=== PATIENT | female | born 1970 | race Caucasian/White ===

== ENCOUNTER 2016-11-15 21:13 | Observation (INO) | payer SELFPAY ==
[~2016-11-15] VITALS: Ht 149.9 cm; Wt 63.5 kg
[2016-11-15 21:53] LABS: BASO # 0.1 x10^3/uL (0.0-0.2); BASO % 1 % (0-3); EOS % 4 % (0-3); HEMATOCRIT 37.8 % (36.0-47.0); HEMOGLOBIN 12.8 g/dL (12.0-15.5); LYMPH # 3.2 x10^3/uL (1.0-4.8); LYMPH % 31 % (24-48); MEAN CORPUSCULAR HEMOGLOBIN 32 pg (25-35); MEAN CORPUSCULAR HGB CONC 34 g/dL (31-37); MEAN CORPUSCULAR VOLUME 96 fL (79-100); MONO % 6 % (0-9); NEUT % 59 % (31-73); PLATELET COUNT 264 x10^3/uL (140-400); RED BLOOD COUNT 3.95 x10^6/uL (3.50-5.40); RED CELL DISTRIBUTION WIDTH 12.9 % (11.5-14.5); WHITE BLOOD COUNT 10.5 x10^3/uL (4.0-11.0)
--- NOTE | 2016-11-15 21:54 | PHYS DOC ---
Past Medical History Past Medical History: Cancer, Liver Disease, Other Additional Past Medical Histor: HYPOGLYCEMIA, CERVICAL CA Past Surgical History: Hysterectomy Alcohol Use: None Drug Use: None Adult General Chief Complaint Chief Complaint: CHEST PAIN HPI HPI Patient is a 46 year old female who presents with chest pain. She states it started last night around 2 in the morning to sharp and it radiates her back she felt nauseated with this and has been getting worse throughout the day. She also said a couple times a rate up into her left side of her jaw and down the left arm. It comes and goes. Nothing she does makes it come on or go away. 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 She has a family history of heart disease her mom and dad and sister each of had coronary disease with stents and bypass. She had a stress test approximately 5 years ago but has not had anything since then. She is not her primary care physician. She' s also been complaining about feeling very weak and tired today. Review of Systems Review of Systems Constitutional: Denies fever or chills [] Eyes: Denies change in visual acuity, redness, or eye pain [] HENT: Denies nasal congestion or sore throat [] Respiratory: Denies cough or shortness of breath [] Cardiovascular: No additional information not addressed in HPI [] GI: Denies abdominal pain, nausea, vomiting, bloody stools or diarrhea [] : Denies dysuria or hematuria [] Musculoskeletal: Denies back pain or joint pain [] Integument: Denies rash or skin lesions [] Neurologic: Denies headache, focal weakness or sensory changes [] Endocrine: Denies polyuria or polydipsia [] Current Medications Current Medications Current Medications Medications (Trade) Dose Ordered Sig/Dayanna Start Time Stop Time Status Last Admin Dose Admin Fentanyl Citrate (Fentanyl 2ml Vial) 50 mcg 1X ONCE 11/15/16 23:15 11/15/16 23:16 DC 11/15/16 23:04 50 MCG Morphine Sulfate 2 mg PRN Q15MIN PRN 11/15/16 22:45 11/15/16 23:05 DC Ondansetron HCl (Zofran) 4 mg STK-MED ONCE 11/15/16 23:22 11/15/16 23:23 DC Allergies Allergies Allergies Coded Allergies Type Severity Reaction Last Updated Verified Corticosteroids (Glucocorticoids) Allergy Intermediate 11/15/16 Yes Penicillins Allergy Intermediate 11/15/16 Yes acetaminophen Allergy Intermediate 11/15/16 Yes cephalexin Allergy Intermediate 11/15/16 Yes erythromycin base Allergy Intermediate 11/15/16 Yes hydrocodone Allergy Intermediate 11/15/16 Yes ketorolac Allergy Intermediate 11/15/16 Yes levofloxacin Allergy Intermediate 11/15/16 Yes morphine Allergy Intermediate 11/15/16 Yes Physical Exam Physical Exam Constitutional: Well developed, well nourished, no acute distress, non-toxic appearance. [] HENT: Normocephalic, atraumatic, bilateral external ears normal, oropharynx moist, no oral exudates, nose normal. [] Eyes: PERRLA, EOMI, conjunctiva normal, no discharge. [] Neck: Normal range of motion, no tenderness, supple, no stridor. [] Cardiovascular:Heart rate regular rhythm, no murmur [] Lungs & Thorax: Bilateral breath sounds clear to auscultation [] Abdomen: Bowel sounds normal, soft, no tenderness, no masses, no pulsatile masses. [] Skin: Warm, dry, no erythema, no rash. [] Back: No tenderness, no CVA tenderness. [] Extremities: No tenderness, no cyanosis, no clubbing, ROM intact, no edema. [] Neurologic: Alert and oriented X 3, normal motor function, normal sensory function, no focal deficits noted. [] Psychologic: Affect normal, judgement normal, mood normal. [] Current Patient Data Vital Signs Vital Signs Date Time Temp Pulse Resp B/P Pulse Ox O2 Delivery O2 Flow Rate FiO2 11/15/16 21:25 97.9 65 16 158/100 100 Room Air 97.9 Lab Values Laboratory Tests Test 11/15/16 21:29 11/15/16 21:40 White Blood Count 10.5x10^3/uL (4.0-11.0) Red Blood Count 3.95x10^6/uL (3.50-5.40) Hemoglobin 12.8g/dL (12.0-15.5) Hematocrit 37.8% (36.0-47.0) Mean Corpuscular Volume 96fL (79-100) Mean Corpuscular Hemoglobin 32pg (25-35) Mean Corpuscular Hemoglobin Concent 34g/dL (31-37) Red Cell Distribution Width 12.9% (11.5-14.5) Platelet Count 264x10^3/uL (140-400) Neutrophils (%) (Auto) 59% (31-73) Lymphocytes (%) (Auto) 31% (24-48) Monocytes (%) (Auto) 6% (0-9) Eosinophils (%) (Auto) 4% (0-3) H Basophils (%) (Auto) 1% (0-3) Neutrophils # (Auto) 6.2x10^3uL (1.8-7.7) Lymphocytes # (Auto) 3.2x10^3/uL (1.0-4.8) Monocytes # (Auto) 0.6x10^3/uL (0.0-1.1) Eosinophils # (Auto) 0.4x10^3/uL (0.0-0.7) Basophils # (Auto) 0.1x10^3/uL (0.0-0.2) D-Dimer (Saira) 0.45ug/mlFEU (0.00-0.50) Sodium Level 141mmol/L (136-145) Potassium Level 3.5mmol/L (3.5-5.1) Chloride Level 105mmol/L (98-107) Carbon Dioxide Level 25mmol/L (21-32) Anion Gap 11 (6-14) Blood Urea Nitrogen 13mg/dL (7-20) Creatinine 0.8mg/dL (0.6-1.0) Estimated GFR (Cockcroft-Gault) 77.2 Glucose Level 91mg/dL (70-99) Calcium Level 9.1mg/dL (8.5-10.1) Magnesium Level 2.0mg/dL (1.8-2.4) Total Bilirubin 0.3mg/dL (0.2-1.0) Direct Bilirubin 0.1mg/dL (0.0-0.2) Aspartate Amino Transferase (AST) 14U/L (15-37) L Alanine Aminotransferase (ALT) 22U/L (14-59) Alkaline Phosphatase 86U/L (46-116) Creatine Kinase 87U/L (26-192) Creatine Kinase MB (Mass) 0.8ng/mL (0.0-3.6) Creatine Kinase MB Relative Index 0.9% (0-4) Troponin I Quantitative < 0.017ng/mL (0.000-0.055) UD-Msh-G-Type Natriuretic Peptide 71pg/mL (0-124) Total Protein 7.6g/dL (6.4-8.2) Albumin 3.7g/dL (3.4-5.0) Lipase 356U/L (73-393) Thyroid Stimulating Hormone (TSH) 3.809uIU/mL (0.358-3.74) H Urine Collection Type Unknown Urine Color Yellow Urine Clarity Clear Urine pH 7.5 Urine Specific [place] <=1.005 Urine Protein Negativemg/dL (NEG-TRACE) Urine Glucose (UA) Negativemg/dL (NEG) Urine Ketones (Stick) Negativemg/dL (NEG) Urine Blood Negative (NEG) Urine Nitrite Negative (NEG) Urine Bilirubin Negative (NEG) Urine Urobilinogen Dipstick 0.2mg/dL (0.2 mg/dL) Urine Leukocyte Esterase Negative (NEG) Urine RBC 0/HPF (0-2) Urine WBC 0/HPF (0-4) Urine Squamous Epithelial Cells Few/LPF Urine Bacteria 0/HPF (0-FEW) Laboratory Tests 11/15/16 21:29 Laboratory Tests 11/15/16 21:29 EKG EKG EKG shows normal sinus rhythm with rate of [address] elevations or T -wave inversions, normal axis, QTC 390 ms as interpreted me. Radiology/Procedures Radiology/Procedures 1 view chest x ray did not show any focal consolidations, bony abnormalities, pneumothorax or other abnormalities, as interpreted by me. Impressions: Chest pain Tobacco abuse Course & Med Decision Making Course & Med Decision Making Pertinent Labs and Imaging studies reviewed. (See chart for details) EKG did not show any cute abnormalities. Chest x-ray also nonacute. Initial labs and troponin is negative. We will admit to the hospitalist with cardiology consultation. Interim orders been written. Patient's agreeable plan and has received aspirin 325 mg. Dragon Disclaimer Dragon Disclaimer This electronic medical record was generated, in whole or in part, using a voice recognition dictation system. Departure Departure Impression: Primary Impression: Chest pain Disposition: 09 ADMITTED INPATIENT Admitting Physician: Juany Murphy Condition: STABLE Referrals: NO PCP (PCP) Problem Qualifiers Primary Impression: Chest pain Chest pain type: unspecified Qualified Code: R07.9 - Chest pain, unspecified DONAVON SOSA MD Nov 15, 2016 21:54
[2016-11-15 22:01] LABS: CALCIUM 9.1 mg/dL (8.5-10.1); CREATININE 0.8 mg/dL (0.6-1.0); GFR 77.2; POTASSIUM 3.5 mmol/L (3.5-5.1)
[2016-11-15 22:07] LABS: ALBUMIN 3.7 g/dL (3.4-5.0); DIRECT BILIRUBIN 0.1 mg/dL (0.0-0.2); TOTAL BILIRUBIN 0.3 mg/dL (0.2-1.0); TOTAL PROTEIN 7.6 g/dL (6.4-8.2)
[2016-11-15 22:16] LABS: CKMB MASS 0.8 ng/mL (0.0-3.6)
[2016-11-15 22:35] LABS: BILIRUBIN,URINE NEGATIVE (NEG); GLUCOSE,URINE NEGATIVE (NEG); NITRITE,URINE NEGATIVE (NEG); PH,URINE 7.5; PROTEIN,URINE NEGATIVE (NEG-TRACE); UROBILINOGEN,URINE 0.2 mg/dL (0.2 mg/dL)
[2016-11-15 22:40] LABS: BACTERIA,URINE 0 /HPF (0-FEW); RBC,URINE 0 /HPF (0-2); SQUAMOUS EPITHELIAL CELL,UR FEW /LPF; WBC,URINE 0 /HPF (0-4)
[2016-11-15] MEDS ORDERED: MORPHINE SULFATE 2 MG/ML DISP.SYRIN. IV/SQ PRN (22:45)
[2016-11-15] MEDS ORDERED: fentaNYL PF VIAL 100 MCG/2 ML VIAL ONE (22:58)
[2016-11-15] MEDS ORDERED: fentaNYL PF VIAL 100 MCG/2 ML VIAL IV ONE (23:15)
[2016-11-15] MEDS ORDERED: ONDANSETRON PF 4 MG/2 ML VIAL. ONE (23:22)
[2016-11-15] MEDS: ONDANSETRON PF 4 MG/2 ML VIAL. IV PRN (23:41)
[2016-11-15] MEDS: fentaNYL PF VIAL 100 MCG/2 ML VIAL IV PRN (23:41)
[2016-11-15] MEDS ORDERED: ASPIRIN CHEWABLE 81 MG TABLET. PO ONE (23:45)
[2016-11-15] MEDS ORDERED: ASPIRIN 325 MG TABLET PO ONE (23:45)
[2016-11-16] VITALS (7 sets, daily range): BP systolic 100–121; BP diastolic 58–89
[2016-11-16] MEDS: fentaNYL PF VIAL 100 MCG/2 ML VIAL IV PRN ×6 (01:34→20:54)
[2016-11-16 06:33] LABS: BASO # 0.1 x10^3/uL (0.0-0.2); BASO % 1 % (0-3); EOS % 6 % (0-3); HEMATOCRIT 37.5 % (36.0-47.0); HEMOGLOBIN 12.9 g/dL (12.0-15.5); LYMPH # 2.8 x10^3/uL (1.0-4.8); LYMPH % 32 % (24-48); MEAN CORPUSCULAR HEMOGLOBIN 33 pg (25-35); MEAN CORPUSCULAR HGB CONC 34 g/dL (31-37); MEAN CORPUSCULAR VOLUME 95 fL (79-100); MONO % 6 % (0-9); NEUT % 56 % (31-73); PLATELET COUNT 236 x10^3/uL (140-400); RED BLOOD COUNT 3.96 x10^6/uL (3.50-5.40); RED CELL DISTRIBUTION WIDTH 13.3 % (11.5-14.5); WHITE BLOOD COUNT 8.8 x10^3/uL (4.0-11.0)
[2016-11-16 06:35] LABS: CALCIUM 8.6 mg/dL (8.5-10.1); CREATININE 0.9 mg/dL (0.6-1.0); GFR 67.4; POTASSIUM 4.1 mmol/L (3.5-5.1)
--- NOTE | 2016-11-16 08:32 | EKG ---
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
--- NOTE | 2016-11-16 09:03 | RAD ---
Portable AP upright view CXR: Clinical indications: Chest pain today. Findings: No acute lung infiltrate or pleural effusion or pulmonary edema or lung mass or pneumothorax is seen. The heart size, pulmonary vasculature, mediastinum and both shelly are unremarkable. Impression: No acute radiographic abnormality is seen.
--- NOTE | 2016-11-16 09:36 | PDOC2 ---
CARDIOLOGY CONSULT NOTE CHEIF COMPLAINT: Chest pain Problems: HPI: 46 y.o F with pmhx as noted below presenting for chest pain. She states that she had some discomfort in her chest yesterday. Kerrick like a burning/GERD issue, then transitioned to pain in the jaw and chest. No prior similar events. Reports persistent epigastric CP now. No SOB. Has some palpitations. No syncope or palpitations. PMHX: Tobacco abuse. Hysterectomy SOCHX: Lives with boyfriend. Unemployed. 2 ppd smoker FAMHX: +CAD CURRENT MEDS: Current Medications Medications (Trade) Dose Ordered Sig/Dayanna Start Time Stop Time Status Last Admin Dose Admin Aspirin (Karen Aspirin) 325 mg 1X ONCE 11/15/16 23:45 11/15/16 23:46 Cancel Aspirin (Aneumed'S Aspirin) 324 mg 1X ONCE 11/15/16 23:45 11/15/16 23:46 DC 11/15/16 23:41 324 MG Fentanyl Citrate (Fentanyl 2ml Vial) 50 mcg PRN Q2HR PRN 11/15/16 23:30 11/16/16 23:29 11/16/16 05:16 50 MCG Morphine Sulfate 2 mg PRN Q15MIN PRN 11/15/16 22:45 11/15/16 23:05 DC Ondansetron HCl (Zofran) 4 mg PRN Q8HRS PRN 11/15/16 23:30 11/16/16 23:29 11/15/16 23:41 4 MG ALLERGIES: Allergies Coded Allergies Type Severity Reaction Last Updated Verified Corticosteroids (Glucocorticoids) Allergy Intermediate 11/15/16 Yes Penicillins Allergy Intermediate 11/15/16 Yes acetaminophen Allergy Intermediate 11/15/16 Yes cephalexin Allergy Intermediate 11/15/16 Yes erythromycin base Allergy Intermediate 11/15/16 Yes hydrocodone Allergy Intermediate 11/15/16 Yes ketorolac Allergy Intermediate 11/15/16 Yes levofloxacin Allergy Intermediate 11/15/16 Yes morphine Allergy Intermediate 11/15/16 Yes ROS: Negative for 05/03 systems reviewed unless otherwise noted above in HPI. PHYSICAL EXAM: Vital Signs: Vital Signs Date Time Temp Pulse Resp B/P Pulse Ox O2 Delivery O2 Flow Rate FiO2 11/16/16 07:03 98.7 50 16 105/65 Room Air 94.0 98.7 11/16/16 05:16 100 I & O Intake and Output 11/16/16 07:00 Intake Total 100 ml Balance 100 ml Intake Oral 100 ml Physical Exam: Gen: a/o x 3. NAD CVS: RRR, no m/r/g PULM: CTAB ABD: Soft, NT/ND +BS EXT: No edema. NEURO:Non-focal DIAGNOSTIC TESTIN. EKG normal 2. Trop neg x 2. Lab Laboratory Tests Test 11/15/16 21:29 11/15/16 21:40 11/16/16 05:00 White Blood Count 10.5x10^3/uL (4.0-11.0) 8.8x10^3/uL (4.0-11.0) Red Blood Count 3.95x10^6/uL (3.50-5.40) 3.96x10^6/uL (3.50-5.40) Hemoglobin 12.8g/dL (12.0-15.5) 12.9g/dL (12.0-15.5) Hematocrit 37.8% (36.0-47.0) 37.5% (36.0-47.0) Mean Corpuscular Volume 96fL (79-100) 95fL (79-100) Mean Corpuscular Hemoglobin 32pg (25-35) 33pg (25-35) Mean Corpuscular Hemoglobin Concent 34g/dL (31-37) 34g/dL (31-37) Red Cell Distribution Width 12.9% (11.5-14.5) 13.3% (11.5-14.5) Platelet Count 264x10^3/uL (140-400) 236x10^3/uL (140-400) Neutrophils (%) (Auto) 59% (31-73) 56% (31-73) Lymphocytes (%) (Auto) 31% (24-48) 32% (24-48) Monocytes (%) (Auto) 6% (0-9) 6% (0-9) Eosinophils (%) (Auto) 4% (0-3) H 6% (0-3) H Basophils (%) (Auto) 1% (0-3) 1% (0-3) Neutrophils # (Auto) 6.2x10^3uL (1.8-7.7) 4.9x10^3uL (1.8-7.7) Lymphocytes # (Auto) 3.2x10^3/uL (1.0-4.8) 2.8x10^3/uL (1.0-4.8) Monocytes # (Auto) 0.6x10^3/uL (0.0-1.1) 0.6x10^3/uL (0.0-1.1) Eosinophils # (Auto) 0.4x10^3/uL (0.0-0.7) 0.5x10^3/uL (0.0-0.7) Basophils # (Auto) 0.1x10^3/uL (0.0-0.2) 0.1x10^3/uL (0.0-0.2) D-Dimer (Saira) 0.45ug/mlFEU (0.00-0.50) Sodium Level 141mmol/L (136-145) 145mmol/L (136-145) Potassium Level 3.5mmol/L (3.5-5.1) 4.1mmol/L (3.5-5.1) # Chloride Level 105mmol/L (98-107) 109mmol/L (98-107) H Carbon Dioxide Level 25mmol/L (21-32) 28mmol/L (21-32) Anion Gap 11 (6-14) 8 (6-14) Blood Urea Nitrogen 13mg/dL (7-20) 14mg/dL (7-20) Creatinine 0.8mg/dL (0.6-1.0) 0.9mg/dL (0.6-1.0) Estimated GFR (Cockcroft-Gault) 77.2 67.4 Glucose Level 91mg/dL (70-99) 98mg/dL (70-99) Calcium Level 9.1mg/dL (8.5-10.1) 8.6mg/dL (8.5-10.1) Total Bilirubin 0.3mg/dL (0.2-1.0) Direct Bilirubin 0.1mg/dL (0.0-0.2) Aspartate Amino Transf (AST/SGOT) 14U/L (15-37) L Alkaline Phosphatase 86U/L (46-116) Creatine Kinase 87U/L (26-192) Creatine Kinase MB (Mass) 0.8ng/mL (0.0-3.6) Creatine Kinase MB Relative Index 0.9% (0-4) Total Protein 7.6g/dL (6.4-8.2) Albumin 3.7g/dL (3.4-5.0) Lipase 356U/L (73-393) Thyroid Stimulating Hormone (TSH) 3.809uIU/mL (0.358-3.74) H Urine Collection Type Unknown Urine Color Yellow Urine Clarity Clear Urine pH 7.5 Urine Specific [place] <=1.005 Urine Protein Negativemg/dL (NEG-TRACE) Urine Glucose (UA) Negativemg/dL (NEG) Urine Ketones (Stick) Negativemg/dL (NEG) Urine Blood Negative (NEG) Urine Nitrite Negative (NEG) Urine Bilirubin Negative (NEG) Urine Urobilinogen Dipstick 0.2mg/dL (0.2 mg/dL) Urine Leukocyte Esterase Negative (NEG) Urine RBC 0/HPF (0-2) Urine WBC 0/HPF (0-4) Urine Squamous Epithelial Cells Few/LPF Urine Bacteria 0/HPF (0-FEW) ASSESSMENT: 1. Suspect GERD, cannot rule out cardiac issues given risk factors. PLAN: 1. Plan for treadmill lexiscan in a.m., patient ate today. Thanks for consult. CARLOS CANTRELL MD Nov 16, 2016 09:36
[2016-11-16 10:22] LABS: CHOLESTEROL/HDL RATIO 6.9
--- NOTE | 2016-11-16 12:35 | HP ---
ADMIT DATE: 11/16/2016 CHIEF COMPLAINT: Chest pain. HISTORY OF PRESENT ILLNESS: The patient is a pleasant 46-year-old healthy female who presented with chest pain. She rates it 710, was associated with some nausea. Her initial workup in the ER was negative; however, coronary artery disease does run in her family. We admit the patient. We are going to consult Cardiology. She is going for a stress test tomorrow. PAST MEDICAL HISTORY: Reviewed, please refer to the computerized H and P. ALLERGIES: None. FAMILY HISTORY: Coronary artery disease. SOCIAL HISTORY: She does smoke. No drinking or drugs. MEDICATIONS: Reviewed, please refer to the MRAD. REVIEW OF SYSTEMS: GENERAL: No history of weight change, weakness or fevers. SKIN: No bruising, hair changes or rashes. EYES: No blurred, double or loss of vision. NOSE AND THROAT: No history of nosebleeds, hoarseness or sore throat. HEART: She complains of intermittent chest pain. LUNGS: Denies cough, hemoptysis, wheezing or shortness of breath. GASTROINTESTINAL: Denies changes in appetite, nausea, vomiting, diarrhea or constipation. GENITOURINARY: No history of frequency, urgency, hesitancy or nocturia. NEUROLOGIC: Denies history of numbness, tingling, tremor or weakness. PSYCHIATRIC: No history of panic, anxiety or depression. ENDOCRINE: No history of heat or cold intolerance, polyuria or polydipsia. EXTREMITIES: Denies muscle weakness, joint pain, pain on walking or stiffness. PHYSICAL EXAMINATION: VITAL SIGNS: Temperature afebrile, pulse 68, respirations 18, blood pressure 144/62. GENERAL: She is alert, cooperative. HEART: Normal S1, S2. LUNGS: Clear. ABDOMEN: Soft, positive bowel sounds. EXTREMITIES: No edema. SKIN: No rashes. PSYCHIATRIC: She is stable. VASCULAR: Good capillary refill. ENDOCRINE: No thyromegaly. LYMPHATICS: No cervical nodes. HEMATOPOIETIC: No bruising. LABORATORY DATA: EKG shows sinus rhythm. Troponin 0. ASSESSMENT AND PLAN: Chest pain, rule out coronary artery disease. The patient has been admitted. We will check serial enzymes, serial EKGs. Consult Cardiology. She is going for myocardial perfusion imaging study in the morning. BEAU GOMEZ DO DR: Anupama JOB#: [id number] / [id number]
[2016-11-16] MEDS: ONDANSETRON PF 4 MG/2 ML VIAL. IV PRN ×2 (12:45→20:54)
[2016-11-16] MEDS ORDERED: ZOLPIDEM 5 MG TABLET. PO PRN (19:30)
[2016-11-17 03:45] VITALS: BP 97/44
[2016-11-17 07:59] VITALS: BP 107/66
[2016-11-17 10:30] VITALS: BP 105/70
[2016-11-17] MEDS ORDERED: REGADENOSON 0.4 MG/5 ML DISP.SYRIN. IV ONE (10:30)
[2016-11-17] MEDS ORDERED: ONDANSETRON PF 4 MG/2 ML VIAL. IV ONE (12:15)
--- NOTE | 2016-11-17 12:18 | RAD ---
APPROVED REPORT Test Type: Pharmacological Stress Nurse/Tech: Nathan Patiño RN Test Indications: chest pain Cardiac History: see ehr Medications: see ehr Medical History: see ehr Resting ECG: SB Resting Heart Rate: 52 bpm Resting Blood Pressure: 102/63mmHg Pretest Chest Pain: None Nurse/Tech Notes Lungs CTA, S1, S2 Consent: The procedure was explained to the patient in lay terms. Informed consent was witnessed. Mitch eout was entered into [employer]. History and Stress Test performed by Ramirez BookerNKillian Pharm. Details Pharmacologic stress testing was performed using 0.4mg per 5ml of regadenoson given intravenously ove r 7-10 seconds. Stress Symptoms No chest pain or symptoms. POST EXERCISE Reason for Termination: Infusion complete Max HR: 133 bpm Max Blood Pressure: 108/74mmHg Blood Pressure response to exercise: Normal blood pressure response during stress. Chest Pain: No. Arrhythmia: No. ST Change: No. INTERPRETATION Stress EKG Conclusion: No acute changes were noted. Imaging Protocol IMAGE PROTOCOL: Stress Tc-99m/rest Tc-99m 2 days Rest: Stress: Viability: Radiopharm.Tc99m Sestamibi [id number] Img Date 11/17/2016 Inj-Img [id number]. Stress Admin Site: IV - Left AntecubitalAdministrator: KEVIN Heredia, ARRT (R)(N) STRESS DATA End Diast. Vol.66.0mlAv. Heart Rate61.0bpm End Syst. Vol.19.0mlCO Index BSA0.0L/min Myocardial Hjim992.0gEject. Hadsezpv22.0% Stress Rates Pk. Fill Rate2.17EDV/secLVtime Pk. Fill 306.32msec Pk. Empty Rate3.73ESV/secLVtime Pk. Snjxw977.10msec 07/23 Pk. Fill1.36EDV/sec Stress Scores Regional WT2.00Summed WT7.00 Regional WM0.00Summed WM0.00 LV Perfusion Normal perfusion at stress. Wall Motion Normal EF at stress. LV Perf. Quant 17 Seg. SSS0.00 Stress Defect Extent (% LAD)0.00Rest Defect Extent (% LAD)Rev. Defect Extent (% LAD)0.00 Stress Defect Extent (% LCX) 7.50Rest Defect Extent (% LCX)Rev. Defect Extent (% LCX)0.00 Stress Defect Extent (% RCA)0.00Rest Defect Extent (% RCA)Rev. Defect Extent (% RCA)0.00 Stress Defect Extent (% FADIA)1.30Rest Defect Extent (% FADIA)Rev. Defect Extent (% FADIA)0.00 Other Information Quality:Good Risk Assessment: Low Risk Conclusion 1. No evidence of vasodilator induced EKG changes. 2. Normal perfusion at stress. 3. EF > 60% 4. Low risk study
[2016-11-17] MEDS: fentaNYL PF VIAL 100 MCG/2 ML VIAL IV PRN (12:27)
[2016-11-17 14:41] VITALS: BP 93/57
--- NOTE | 2016-11-17 14:45 | PDOC ---
PROGRESS NOTES Chief Complaint Chief Complaint cc: atypical chest pain, nausea. tobacco use family history of CAD History of Present Illness History of Present Illness Patient seen and evaluated at bedside. Patient undergoing MPI per cardiology. Currently, she feel malaised, anxious, nauseous, shorteness of breath and some chest pain after the initial testing. d/w nurse about care plan. Vitals Vitals Vital Signs Date Time Temp Pulse Resp B/P Pulse Ox O2 Delivery O2 Flow Rate FiO2 11/17/16 13:00 18 Room Air 11/17/16 12:27 98 11/17/16 10:30 97.8 60 105/70 97.8 11/16/16 11:22 94.0 Physical Exam General: Alert, Oriented X3, Cooperative, mild distress, Other (anxious, tearful affect. ) Heart: Regular rate, Normal S1 Lungs: Clear, Other (diminished inspiratory effort. Negative chest retractions and/or other accessory muscles. ) Abdomen: Soft, No tenderness Extremities: No cyanosis, No edema Skin: No rashes, No significant lesion Review of Systems Review of Systems (+) anxiety (+) generalized malaise (+) nausea (+) chest pain, currently undergoing MPI (+) SOB Denies palpitations, abdominal pain, vomiting/diarrhea, dizziness/ lightheadedness, headache, or fever/chills. Assessment and Plan Assessmemt and Plan Problems Medical Problems: (1) Chest pain Status: Acute Assessment: 1.) atypical chest pain 2.) situational anxiety 3.) elevated cholesterol and triglycerides - need fasting lipid panel on outpatient basis Plan: 1.) continue MPI and further cardiac evaluation 2.) continue pain regimen 3.) monitor AM labs 4.) probable discharge today or in the AM when okay with cardiology 5.) follow-up with pcp and/or cardiology in 1-2 weeks. Problems: Comment Review of Relevant I have reviewed the following items puja (where applicable) has been applied. Labs Laboratory Tests Test 11/15/16 21:29 11/15/16 21:40 11/16/16 05:00 11/16/16 11:20 White Blood Count 10.5x10^3/uL (4.0-11.0) 8.8x10^3/uL (4.0-11.0) Red Blood Count 3.95x10^6/uL (3.50-5.40) 3.96x10^6/uL (3.50-5.40) Hemoglobin 12.8g/dL (12.0-15.5) 12.9g/dL (12.0-15.5) Hematocrit 37.8% (36.0-47.0) 37.5% (36.0-47.0) Mean Corpuscular Volume 96fL (79-100) 95fL (79-100) Mean Corpuscular Hemoglobin 32pg (25-35) 33pg (25-35) Mean Corpuscular Hemoglobin Concent 34g/dL (31-37) 34g/dL (31-37) Red Cell Distribution Width 12.9% (11.5-14.5) 13.3% (11.5-14.5) Platelet Count 264x10^3/uL (140-400) 236x10^3/uL (140-400) Neutrophils (%) (Auto) 59% (31-73) 56% (31-73) Lymphocytes (%) (Auto) 31% (24-48) 32% (24-48) Monocytes (%) (Auto) 6% (0-9) 6% (0-9) Eosinophils (%) (Auto) 4% (0-3) 6% (0-3) Basophils (%) (Auto) 1% (0-3) 1% (0-3) Neutrophils # (Auto) 6.2x10^3uL (1.8-7.7) 4.9x10^3uL (1.8-7.7) Lymphocytes # (Auto) 3.2x10^3/uL (1.0-4.8) 2.8x10^3/uL (1.0-4.8) Monocytes # (Auto) 0.6x10^3/uL (0.0-1.1) 0.6x10^3/uL (0.0-1.1) Eosinophils # (Auto) 0.4x10^3/uL (0.0-0.7) 0.5x10^3/uL (0.0-0.7) Basophils # (Auto) 0.1x10^3/uL (0.0-0.2) 0.1x10^3/uL (0.0-0.2) D-Dimer (Saira) 0.45ug/mlFEU (0.00-0.50) Sodium Level 141mmol/L (136-145) 145mmol/L (136-145) Potassium Level 3.5mmol/L (3.5-5.1) 4.1mmol/L (3.5-5.1) Chloride Level 105mmol/L (98-107) 109mmol/L (98-107) Carbon Dioxide Level 25mmol/L (21-32) 28mmol/L (21-32) Anion Gap 11 (6-14) 8 (6-14) Blood Urea Nitrogen 13mg/dL (7-20) 14mg/dL (7-20) Creatinine 0.8mg/dL (0.6-1.0) 0.9mg/dL (0.6-1.0) Estimated GFR (Cockcroft-Gault) 77.2 67.4 Glucose Level 91mg/dL (70-99) 98mg/dL (70-99) Calcium Level 9.1mg/dL (8.5-10.1) 8.6mg/dL (8.5-10.1) Magnesium Level 2.0mg/dL (1.8-2.4) Total Bilirubin 0.3mg/dL (0.2-1.0) Direct Bilirubin 0.1mg/dL (0.0-0.2) Aspartate Amino Transf (AST/SGOT) 14U/L (15-37) Alanine Aminotransferase (ALT/SGPT) 22U/L (14-59) Alkaline Phosphatase 86U/L (46-116) Creatine Kinase 87U/L (26-192) Creatine Kinase MB (Mass) 0.8ng/mL (0.0-3.6) Creatine Kinase MB Relative Index 0.9% (0-4) Troponin I Quantitative < 0.017ng/mL (0.000-0.055) < 0.017ng/mL (0.000-0.055) < 0.017ng/mL (0.000-0.055) RF-Afb-E-Type Natriuretic Peptide 71pg/mL (0-124) Total Protein 7.6g/dL (6.4-8.2) Albumin 3.7g/dL (3.4-5.0) Lipase 356U/L (73-393) Thyroid Stimulating Hormone (TSH) 3.809uIU/mL (0.358-3.74) Urine Collection Type Unknown Urine Color Yellow Urine Clarity Clear Urine pH 7.5 Urine Specific [place] <=1.005 Urine Protein Negativemg/dL (NEG-TRACE) Urine Glucose (UA) Negativemg/dL (NEG) Urine Ketones (Stick) Negativemg/dL (NEG) Urine Blood Negative (NEG) Urine Nitrite Negative (NEG) Urine Bilirubin Negative (NEG) Urine Urobilinogen Dipstick 0.2mg/dL (0.2 mg/dL) Urine Leukocyte Esterase Negative (NEG) Urine RBC 0/HPF (0-2) Urine WBC 0/HPF (0-4) Urine Squamous Epithelial Cells Few/LPF Urine Bacteria 0/HPF (0-FEW) Triglycerides Level 485mg/dL (0-150) Cholesterol Level 221mg/dL (0-200) LDL Cholesterol, Calculated 92mg/dL (0-100) VLDL Cholesterol, Calculated 97mg/dL (0-40) Non-HDL Cholesterol Calculated 189mg/dL (0-129) HDL Cholesterol 32mg/dL (40-60) Cholesterol/HDL Ratio 6.9 Medications Current Medications Morphine Sulfate 2 mg PRN Q15MIN PRN IV/SQ PAIN GREATER THAN 3/10; Start at 22:45; Stop 11/15/16 at 23:05; Status DC Fentanyl Citrate (Fentanyl 2ml Vial) 100 mcg STK-MED ONCE .ROUTE ; Start at 22:58; Stop 11/15/16 at 22:59; Status DC Fentanyl Citrate (Fentanyl 2ml Vial) 50 mcg 1X ONCE IV Last administered on t 23:04; Start 11/15/16 at 23:15; Stop 11/15/16 at 23:16; Status DC Ondansetron HCl (Zofran) 4 mg STK-MED ONCE .ROUTE ; Start 11/15/16 at 23:22; Stop 11/15/16 at 23:23; Status DC Aspirin (Karen Aspirin) 325 mg 1X ONCE PO ; Start 11/15/16 at 23:45; Stop 11/15 at 23:46; Status Cancel Ondansetron HCl (Zofran) 4 mg PRN Q8HRS PRN IV NAUSEA/VOMITING Last administered on 11/16/16 20:54; Start 11/15/16 at 23:30; Stop 11/16/16 at 23:29 ; Status DC Fentanyl Citrate (Fentanyl 2ml Vial) 50 mcg PRN Q2HR PRN IV SEVERE PAIN Last administered on 11/16/16 18:16; Start 11/15/16 at 23:30; Stop 11/16/16 at 19:32 ; Status DC Aspirin (Children'S Aspirin) 324 mg 1X ONCE PO Last administered on 11/15/16 23:41; Start 11/15/16 at 23:45; Stop 11/15/16 at 23:46; Status DC Fentanyl Citrate (Fentanyl 2ml Vial) 50 mcg PRN Q2HR PRN IV PAIN Last administered on 11/17/16 12:27; Start 11/16/16 at 19:30 Zolpidem Tartrate (Ambien) 5 mg PRN QHS PRN PO INSOMNIA Last administered on 20:54; Start 11/16/16 at 19:30 Regadenoson (Lexiscan) 0.4 mg 1X ONCE IV Last administered on 11/17/16 10:33 ; Start 11/17/16 at 10:30; Stop 11/17/16 at 10:31; Status DC Ondansetron HCl (Zofran) 4 mg 1X ONCE IV Last administered on 11/17/16 12:24 ; Start 11/17/16 at 12:15; Stop 11/17/16 at 12:16; Status DC Active Scripts Active Reported No Known Medications Prior To Admisstion (Info) Each 1 Each Vitals/I & O Vital Sign - Last 24 Hours 11/16/16 11/16/16 11/16/16 11/16/16 15:00 15:07 15:37 18:16 Temp 97.9 97.9 Pulse 54 Resp 18 18 B/P 101/69 Pulse Ox 97 100 100 O2 Delivery Room Air Room Air Room Air Room Air 11/16/16 11/16/16 11/16/16 11/16/16 18:46 19:24 19:43 20:54 Temp 97.7 97.7 Pulse 56 Resp 18 18 18 B/P 105/89 Pulse Ox 97 O2 Delivery Room Air Room Air Room Air 11/16/16 11/17/16 11/17/16 11/17/16 22:54 03:45 07:59 08:00 Temp 97.6 97.4 97.7 97.6 97.4 97.7 Pulse 60 58 52 Resp 20 B/P 112/77 97/44 107/66 Pulse Ox 96 97 99 O2 Delivery Room Air Room Air Room Air Room Air 11/17/16 11/17/16 11/17/16 10:30 12:27 13:00 Temp 97.8 97.8 Pulse 60 Resp B/P 105/70 Pulse Ox 98 98 O2 Delivery Room Air Room Air Room Air Intake and Output 11/16/16 11/16/16 11/17/16 15:00 23:00 07:00 Intake Total 240 ml 500 ml Balance 240 ml 500 ml BEAU GOMEZ III DO Nov 17, 2016 14:45
[2016-11-17] MEDS ORDERED: OMEP20TA63 PO (15:47)
== END 2016-11-17 17:53 | disposition home or self-care (01) ==
LOC: ER 21:13 → 2 SOUTH 22:45
PROVIDERS: ADMIT Internal Medicine; ATTEND Internal Medicine
DX: R07.89 Other chest pain (principal); F17.210 Nicotine dependence, cigarettes, uncomplicated; F41.9 Anxiety disorder, unspecified; K21.9 Gastro-esophageal reflux disease without esophagitis; Z85.41 Personal history of malignant neoplasm of cervix uteri; Z90.710 Acquired absence of both cervix and uterus
CPT/HCPCS: 36415; 71010; 78452; 80048; 80061; 80076; 81001; 82550; 82553; 83690; 83735; 83880; 84443; 84484; 85027; 85379; 93005; 93017; 96374; 96375; 96376; 99285; A9500; G0378; J2405; J2785; J3010; G0379